=== PATIENT | male | born 1955 | race Caucasian/White ===

== ENCOUNTER → 2020-06-10 | Outpatient (CLI) | payer OTHER ==
[~2020-06-10] MED LIST: ADVIL PM CAPLE1 EACH PO; PRILOSEC 10MG C10 M1; XANAX 0.25 MG0.25 MG PO; [UNRECOGNIZED DRUG - OTHER]
== END ==
LOC: LAB 09:24
PROVIDERS: ATTEND Surgery
DX: Z01.812 Encounter for preprocedural laboratory examination (principal); Z20.822 Contact with and (suspected) exposure to COVID-19

== ENCOUNTER 2020-06-13 08:36 | Day surgery (SDC) | payer OTHER ==
[~2020-06-13] VITALS: Ht 165.1 cm; Wt 61.2 kg
--- NOTE | ~2020-06-13 | O ---
[facility] [place] [address] OPERATIVE REPORT Name: JAVY CUENCA Room #: DEP [facility] M.R.#: [id number] Admission: 06/13/20 Attend Phys: Steven Tomlin MD Discharge: 06/13/20 Date of : 53 Report #: [id number] THIS REPORT FOR: cc: Carlos A Dougherty Gregg R. DO Chu, Peter Y. MD ~ DATE OF SERVICE: 06/13/2020 PREOPERATIVE DIAGNOSIS: Right inguinal hernia. POSTOPERATIVE DIAGNOSIS: Right indirect inguinal hernia. PROCEDURES PERFORMED: Laparoscopic repair of right indirect inguinal hernia with mesh. ANESTHESIA: General. SURGEON: Steven Tomlin MD COMPLICATIONS: None. ESTIMATED BLOOD LOSS: 15 mL. PROCEDURE NOTE: With the patient under general anesthesia, Richardson catheter was placed, IV antibiotic was administered. Abdomen was prepped and draped in sterile fashion. Timeout was performed. A 0.25% Marcaine was used to anesthetize the skin adjacent to the umbilicus on the right side. Transverse incision was made adjacent to the umbilicus. This was carried down through the skin and subcutaneous tissue, the anterior fascia was identified. Anterior fascia was incised transversely. The rectus muscle was spread with a hemostat. The posterior fascia was then identified. The space between the muscle and the posterior fascia was dissected inferiorly and getting into the properitoneal space. An Origin balloon trocar was placed. CO2 was administered. Approximately 2 inches below the umbilicus, a 5 mm trocar was placed in the properitoneal space. There was some scar tissue and branches of the inferior epigastric vessel that had to be divided to allow the space to open up. Properitoneal space was opened up without difficulty. The abdominal wall lateral to the epigastric vessel was isolated. A second 5 mm trocar was placed through here. The rest floor was opened up. The area over the mid part of the pubic bone was not able to be opened up due to the previously placed mesh on the left side was stuck to this area. The right side of the Leobardo's ligament was also able to be identified. No direct defect. There is an indirect hernia sac found over the cord structure. This was freed from the cord structure and then the hernia sac was reduced out of the internal ring. This was then brought into the properitoneal space away from the cord. Once this was performed, a large [facility] [address] [place] [address] OPERATIVE REPORT Name: JAVY CUENCA Room #: DEP [facility] M.Shannan.#: [id number] Admission: 06/13/20 Attend Phys: Steven Tomlin MD Discharge: 06/13/20 Date of : 53 Report #: [id number] 3DMax lightweight mesh was placed into the properitoneal space. This was opened up. After covering the internal ring well and then placing it to cover the floor of the inguinal canal. The mesh was tacked with SorbaFix. The mesh seated well. The peritoneal hernia sac was identified and made sure that this was from the internal ring with the mesh there. CO2 was evacuated. There is air that went into the peritoneal cavity. At the umbilical incision, the fascia was opened. Peritoneum was opened. Small little incision and the air was released from the abdominal cavity. Posterior fascia was closed with [id number] 0 Vicryl. The anterior fascia was closed with [id number] 0 Vicryl x 2. Skin was irrigated. Skin was closed with 5-0 PDS. Mastisol, Steri-Strip, Band-Aids used for dressing. The patient tolerated the procedure well and was taken to the recovery room. By: [id number] Steven Tomlin MD /nt
[2020-06-13 09:45] LABS: HEMATOCRIT 47.7 % (42.0-52.0); HEMOGLOBIN 15.5 gm/dL (14.0-18.0)
[2020-06-13 10:28] VITALS: BP 129/77
--- NOTE | 2020-06-13 11:12 | EKG ---
[address] [address] ELECTROCARDIOGRAM REPORT Name: JAVY CUENCA Room #: 150-12 [facility].#: [id number] Admission: 06/13/20 Attend Phys: Steven Tomlin MD Discharge: Date of : 53 Report #: [id number] [facility] Test Date: 2020-06-13 Test Time: 09:16:00 Pat Name: JAVY CUENCA Department: Room: 150 12 Gender: M Adult Parole Officer: DANIEL : 1955 Requested By: Steven Tomlin Order Number: [id number] MD: Nathan Cotto Measurements Intervals [place] Rate: 55 P: 53 NM: 154 QRS: 41 QRSD: 91 T: 44 QT: 388 QTc: 371 Interpretive Statements Sinus rhythm Atrial premature complex Compared to ECG 10/26/2010 14:28:09 Atrial premature complex(es) now present Electronically Signed On 06-13-2020 11:11:59 CDT by Nathan Cotto [email or web address] <ELECTRONICALLY SIGNED> By: Nathan Cotto MD, [facility] 06/13/20 1111 0916 5 Nathan Cotto MD, FACC /EPI
[2020-06-13] MEDS ORDERED: HYDROCODON-ACE1 EAC7 PO (12:29)
[2020-06-13 12:42] VITALS: BP 129/77
== END 2020-06-13 13:35 | disposition home or self-care (01) ==
LOC: OR → TBA 08:38 → OR 09:10
PROVIDERS: ATTEND Surgery
DX: K40.90 Unilateral inguinal hernia, without obstruction or gangrene, not specified as recurrent (principal); I10 Essential (primary) hypertension; F41.9 Anxiety disorder, unspecified; Z98.890 Other specified postprocedural states; Z87.442 Personal history of urinary calculi; Z85.828 Personal history of other malignant neoplasm of skin; Z90.49 Acquired absence of other specified parts of digestive tract; Z79.899 Other long term (current) drug therapy
CPT/HCPCS: 50010; 50101; 50411; 50455; 50507; 50555; 50848; 51489; 52265; 53065; 53307; 56525; 56526; 58574; 62110; 62900; 70005

== ENCOUNTER → 2021-04-22 | Outpatient (CLI) | payer OTHER ==
[~2021-04-22] MED LIST changes: +HYDROCODON-ACE1 EAC7 PO
== END ==
LOC: CAT 07:20
PROVIDERS: ATTEND Family Medicine
DX: Z13.6 Encounter for screening for cardiovascular disorders (principal); I25.10 Atherosclerotic heart disease of native coronary artery without angina pectoris; E78.00 Pure hypercholesterolemia, unspecified

== ENCOUNTER → 2021-05-02 | Outpatient (CLI) | payer BC | LOC: SJCVC 10:51 | PROVIDERS: ATTEND Internal Medicine Cardiovascular Disease | DX: R07.9 Chest pain, unspecified (principal); E78.00 Pure hypercholesterolemia, unspecified; R93.1 Abnormal findings on diagnostic imaging of heart and coronary circulation; I25.10 Atherosclerotic heart disease of native coronary artery without angina pectoris; E78.5 Hyperlipidemia, unspecified; Z79.899 Other long term (current) drug therapy; Z98.890 Other specified postprocedural states ==

== ENCOUNTER → 2021-05-19 | Outpatient (CLI) | payer BC | LOC: SJCVCIMAG 07:07 | PROVIDERS: ATTEND Internal Medicine Cardiovascular Disease | DX: I07.1 Rheumatic tricuspid insufficiency (principal); R07.9 Chest pain, unspecified; R93.1 Abnormal findings on diagnostic imaging of heart and coronary circulation; E78.00 Pure hypercholesterolemia, unspecified; E78.5 Hyperlipidemia, unspecified; I10 Essential (primary) hypertension; E11.9 Type 2 diabetes mellitus without complications; Z88.8 Allergy status to other drugs, medicaments and biological substances; Z98.890 Other specified postprocedural states ==